=== PATIENT | female | born 1970 | race Caucasian/White ===

== ENCOUNTER 2017-02-09 16:18 | Outpatient (CLI) | payer MEDICAID | END 2017-02-09 16:19 | disposition critical access hospital (66) | DX: M25.551 Pain in right hip (principal); R10.11 Right upper quadrant pain | CPT/HCPCS: A0425; A0429 ==

== ENCOUNTER 2017-02-09 16:49 | Emergency (ER) | payer MEDICAID ==
[2017-02-09] MEDS ORDERED: HYDROmorphone 1 MG/ML SYRINGE IVP STA (17:04)
[2017-02-09] MEDS ORDERED: SODIUM CHLORIDE 0.9% 1,000 ML IV ONE (17:05)
[2017-02-09] MEDS ORDERED: HYDROmorphone 1 MG/ML SYRINGE ONE (17:07)
[2017-02-09] MEDS ORDERED: IOPAMIDOL-300 100 ML VIAL IVP ONE (18:42)
[2017-02-09] MEDS ORDERED: KETOROLAC 60 MG/2 ML VIAL IVP STA (19:30)
[2017-02-09] MEDS ORDERED: diazePAM INJ 5 MG/ML SYRINGE IVP STA (19:30)
[2017-02-09] MEDS ORDERED: diazePAM INJ 5 MG/ML SYRINGE ONE (19:37)
[2017-02-09] MEDS ORDERED: KETOROLAC 30 MG/ML VIAL ONE (19:37)
== END 2017-02-09 19:53 | disposition home or self-care (01) ==
DX: M62.830 Muscle spasm of back (principal); S09.90XA Unspecified injury of head, initial encounter; S39.91XA Unspecified injury of abdomen, initial encounter; R07.89 Other chest pain; W18.30XA Fall on same level, unspecified, initial encounter; Y92.000 Kitchen of unspecified non-institutional (private) residence as the place of occurrence of the external cause
CPT/HCPCS: 36415; 70450; 71260; 74177; 80053; 83690; 85025; 96374; 96375; 99283; 99285; J1170; Q9967

== ENCOUNTER 2017-05-21 19:23 | Outpatient (CLI) | payer MEDICAID | END 2017-05-21 19:24 | disposition critical access hospital (66) | LOC: EMS 19:23 | PROVIDERS: ATTEND Surgery | DX: R07.9 Chest pain, unspecified (principal); R42 Dizziness and giddiness | CPT/HCPCS: A0425; A0429 ==

== ENCOUNTER 2017-05-21 20:00 | Emergency (ER) | payer MEDICAID ==
[2017-05-21] MEDS ORDERED: SODIUM CHLORIDE 0.9% 1,000 ML IV ONE (20:17)
[2017-05-21 20:26] LABS: BILIRUBIN,URINE NEGATIVE (NEGATIVE); PH,URINE 5.5 PH (5.0-7.5)
[2017-05-21] MEDS ORDERED: ACETAMINOPHEN 325 MG TABLET PO STA (20:26)
[2017-05-21] MEDS ORDERED: HYDROmorphone 1 MG/ML SYRINGE IVP STA (20:26)
[2017-05-21 20:27] LABS: UA w/ MICROSCOPIC CHARGE YES
[2017-05-21 20:28] LABS: HCG UR QUAL NEGATIVE
[2017-05-21 20:29] LABS: BASOPHILS % (AUTO) 0.8 %; HCT - HEMATOCRIT 38.2 % (37.0-47.0); HGB - HEMOGLOBIN 13.1 g/dL (12.0-16.0); LYMPHOCYTES % (AUTO) 53.7 %; MEAN CORPUSCULAR HEMOGLOBIN 28.2 pg (27.0-31.0); MEAN CORPUSCULAR HGB CONC 34.2 g/dL (32.0-36.0); MEAN CORPUSCULAR VOLUME 82.6 fL (81.0-99.0); MEAN PLATELET VOLUME 7.3 fL (7.9-10.8); MONOCYTES % (AUTO) 7.4 %; NEUTROPHILS % (AUTO) 37.1 %; RED BLOOD COUNT 4.62 10^6/uL (4.20-5.40)
--- NOTE | 2017-05-21 20:29 | ED Physician Documentation ---
History of Present Illness - Stated complaint Stated Complaint: SOB/DIZZY - Chief complaint Chief Complaint: Neuro - History obtained from History obtained from: Patient, EMS - History of Present Illness Timing: Other (47-year-old woman with a history of intermittent thrombocytopenia , idiopathic, and chronic cough, undergoing workup at the [facility] presents with increasing right flank pain and fever, also some shortness of breath more today. She also had a seizure but that is not abnormal , she says that she often has seizures where she does not lose consciousness but becomes incontinent. She also has foul-smelling urine in 1 week's worth of diarrhea, no recent antibiotics.) Review of Systems Ten Systems: 10 systems reviewed and negative Constitutional: reports: Fever, Chills, Myalgias, Fatigue Nose: denies: Rhinorrhea / runny nose, Congestion Cardiac: reports: Chest pain / pressure. denies: Palpitations, Pedal edema, Calf pain Respiratory: reports: Dyspnea, Cough. denies: Hemoptysis, Wheezing GI: reports: Diarrhea. 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 - Present Medications Home Medications: Ambulatory Orders Medication Instructions Recorded Confirmed Trazodone HCl 100 mg PO 05/18/13 05/18/13 Venlafaxine [Effexor] 150 mg PO QDAC 05/18/13 05/18/13 Ibuprofen [Motrin] 400 mg PO Q6H PRN #30 tablet 12/31/13 Ibuprofen [Motrin] 800 mg PO Q8H PRN #30 tablet 08/10/16 Ibuprofen [Motrin] 400 mg PO Q6H PRN #30 tablet 09/29/16 Clonazepam 1 mg PO TID 02/09/17 02/09/17 Cyclobenzaprine [Flexeril] 10 mg PO TID PRN #20 tablet 02/09/17 Oxycodone HCl/Acetaminophen 1 - 2 tab PO Q4H PRN #7 tablet 02/09/17 [Percocet 5-325 mg Tablet] Prazosin HCl 5 PO 02/09/17 Ciprofloxacin HCl [Cipro] 500 mg PO BID #14 tablet 05/21/17 Oxycodone HCl/Acetaminophen 1 - 2 tab PO Q4H PRN #15 tablet 05/21/17 [Percocet 5-325 mg Tablet] - Allergies Allergies/Adverse Reactions: Allergies Allergy/AdvReac Type Severity Reaction Status Date / Time latex Allergy Mild Rash Verified 12/31/13 13:48 acetaminophen [From Vicodin] Allergy tachycardia Verified 05/18/13 16:54 hydrocodone bitartrate * Allergy tachycardia Verified 05/18/13 16:54 [From Vicodin] - Social History Does the pt smoke?: No Smoking Status: Never smoker Does the pt drink ETOH?: No Does the pt have substance abuse?: No - Family History Family history: reports: Non contributory PD ED PE NORMAL - Vitals Vital signs reviewed: Yes - General General: Alert and oriented X 3, No acute distress - HEENT HEENT: PERRL, EOMI - Neck Neck: Supple, no meningeal sign, No bony TTP - Cardiac Cardiac: RRR, No murmur - Respiratory Respiratory: No respiratory distress, Clear bilaterally - Abdomen Abdomen: Normal bowel sounds, Soft, Non tender - Back Back: Other (R flank CVAT TTP) - Derm Derm: Normal color, No rash - Extremities Extremities: No deformity, No tenderness to palpate, No edema, No calf tenderness / cord - Neuro Neuro: Alert and oriented X 3, Normal speech - Psych Psych: Normal mood, Normal affect Results - Vitals Vitals: Vital Signs - 24 hr 05/21/17 05/21/17 05/21/17 19:58 20:20 21:15 Temperature 39.5 C H Heart Rate 65 77 74 Respiratory 18 17 72 H Rate Blood Pressure 99/63 111/68 107/61 O2 Saturation 100 100 96 Oxygen O2 Source Room air - EKG (time done) 2009 Rate: Rate (enter#) (64) Rhythm: NSR [place]: Normal Intervals: Normal DE QRS: Normal Ischemia: Normal ST segments Computer interpretation: Agree with computer - Labs Labs: Laboratory Tests 05/21/17 05/21/17 05/21/17 20:07 20:18 20:18 WBC 10.0 RBC 4.62 Hgb 13.1 Hct 38.2 MCV 82.6 MCH 28.2 MCHC 34.2 RDW 13.0 Plt Count 291 MPV 7.3 L Neut # Not Reportable Lymph # Not Reportable [place] # Not Reportable Eos # Not Reportable Baso # Not Reportable Absolute Nucleated RBC Not Reportable Total Counted 100 Band Neuts % (Manual) 0 Reactive Lymphs % (Man) 4 Neutrophils # (Manual) 3.2 Lymphocytes # (Manual) 6.6 H Monocytes # (Manual) 0.1 Eosinophils # (Manual) 0.1 Nucleated RBCs Not Reportable Differential Comment MANUAL DIFFERENTIAL Sodium 137 Potassium 3.6 Chloride 106 Carbon Dioxide 23 Anion Gap 8.0 BUN 11 Creatinine 0.7 Estimated GFR (MDRD) 90 Glucose 72 Lactic Acid Calcium 9.1 Total Bilirubin 0.4 AST 17 ALT 10 Alkaline Phosphatase 85 Total Protein 7.6 Albumin 4.1 Globulin 3.5 Albumin/Globulin Ratio 1.2 Lipase 15 L Urine Color YELLOW Urine Clarity HAZY Urine pH 5.5 Ur Specific [place] 1.010 Urine Protein NEGATIVE Urine Glucose (UA) NEGATIVE Urine Ketones NEGATIVE Urine Occult Blood TRACE-INTA Urine Nitrite POSITIVE H Urine Bilirubin NEGATIVE Urine Urobilinogen 0.2 (NORMAL) Ur Leukocyte Esterase NEGATIVE Urine RBC 0-5 Urine WBC 6-10 H Ur Squamous Epith Cells MOD Squamous H Urine Bacteria Many H Ur Microscopic Review INDICATED Urine Culture Comments NOT INDICATED Urine HCG, Qual NEGATIVE 05/21/17 21:19 WBC RBC Hgb Hct MCV MCH MCHC RDW Plt Count MPV Neut # Lymph # [place] # Eos # Baso # Absolute Nucleated RBC Total Counted Band Neuts % (Manual) Reactive Lymphs % (Man) Neutrophils # (Manual) Lymphocytes # (Manual) Monocytes # (Manual) Eosinophils # (Manual) Nucleated RBCs Differential Comment Sodium Potassium Chloride Carbon Dioxide Anion Gap BUN Creatinine Estimated GFR (MDRD) Glucose Lactic Acid 1.4 Calcium Total Bilirubin AST ALT Alkaline Phosphatase Total Protein Albumin Globulin Albumin/Globulin Ratio Lipase Urine Color Urine Clarity Urine pH Ur Specific [place] Urine Protein Urine Glucose (UA) Urine Ketones Urine Occult Blood Urine Nitrite Urine Bilirubin Urine Urobilinogen Ur Leukocyte Esterase Urine RBC Urine WBC Ur Squamous Epith Cells Urine Bacteria Ur Microscopic Review Urine Culture Comments Urine HCG, Qual - Rads (name of study) 2v chest Radiology: EMP read contemporaneously (NAD) PD MEDICAL DECISION MAKING - ED course ED course: 47-year-old woman presents with clinical pyelonephritis and obviously infected albeit contaminated urine which is cultured anyway. No evidence of systemic infection/sepsis. Administered Rocephin here. Departure - Departure Disposition: 01 Home, Self Care Clinical Impression: Pyelonephritis Condition: Good Record reviewed to determine appropriate education?: Yes Instructions: Pyelonephritis Dc Prescriptions: Ciprofloxacin HCl [Cipro] 500 mg PO BID #14 tablet Oxycodone HCl/Acetaminophen [Percocet 5-325 mg Tablet] 1 - 2 tab PO Q4H PRN #15 tablet PRN Reason: Pain Comments: Call your doctor to arrange a follow-up appointment, make the next available appointment. In the interim, return anytime if worse or if new symptoms develop. We will culture your urine, the results should be done in 48-72 hours. If an antibiotic change is necessary we will call you. Return if worse in the meantime, especially if you develop increasing flank pain, fevers, or cannot keep down the medication.
[2017-05-21 20:30] LABS: BAND NEUTROPHILS % (MANUAL) 0 %
[2017-05-21] MEDS ORDERED: HYDROmorphone 1 MG/ML SYRINGE ONE (20:33)
[2017-05-21] MEDS ORDERED: ACETAMINOPHEN 325 MG TABLET PO ONE (20:34)
[2017-05-21 20:35] LABS: UR CULTURE IF IND NOT INDICATED
[2017-05-21 20:39] LABS: ALBUMIN/GLOBULIN RATIO 1.2 (1.0-2.2); BILIRUBIN,TOTAL 0.4 mg/dL (0.2-1.0); CALCIUM 9.1 mg/dL (8.5-10.3); CREATININE 0.7 mg/dL (0.4-1.0); POTASSIUM 3.6 mmol/L (3.5-5.0); TOTAL PROTEIN 7.6 g/dL (6.7-8.2)
[2017-05-21 20:48] LABS: EOSINOPHILS % (MANUAL) 1 %; LYMPHOCYTES % (MANUAL) 62 %; NEUTROPHILS % (MANUAL) 32 %; NP AUTO DIFFERENTIAL? YES; NP MAN DIFFERENTIAL? NO; TOTAL CELLS COUNTED 100
--- NOTE | 2017-05-21 21:26 | XRAY Preliminary Report ---
Exam: XR Chest 2 View PA/LAT IMPRESSION: Normal 2-view chest radiography. [facility] SITE ID: [id number]
--- NOTE | 2017-05-21 21:34 | XRAY Report ---
EXAM: CHEST RADIOGRAPHY EXAM DATE: 05/21/2017 08:49 PM. CLINICAL HISTORY: Cough, fever. COMPARISON: 09/29/2016. TECHNIQUE: 2 views. FINDINGS: Lungs/Pleura: No focal opacities evident. No pleural effusion. No pneumothorax. Normal volumes. Mediastinum: Heart and mediastinal contours are unremarkable. Other: None. IMPRESSION: Normal 2-view chest radiography. [facility] Referring Provider Line: [phone] SITE ID: [id number]
[2017-05-21] MEDS ORDERED: oxyCODONE/ACET 5/325 Prepack 4 PO STA (21:44)
[2017-05-21] MEDS ORDERED: cefTRIAXone 1 GM in SODIUM CHLORIDE 0.9% MINIBAG 100 ML IV STA (21:44)
[2017-05-21] MEDS ORDERED: ceFAZolin 1 GM VIAL ONE (21:50)
[2017-05-21] MEDS ORDERED: SODIUM CHLORIDE 0.9% MINIBAG 100 ML IV ONE (21:50)
[2017-05-21] MEDS ORDERED: oxyCODONE/ACET 5/325 Prepack 4 PO ONE (21:50)
[2017-05-21] MEDS ORDERED: cefTRIAXone 1 GM VIAL ONE (21:52)
[2017-05-21 22:38] VITALS: BP 110/70
== END 2017-05-21 22:39 | disposition home or self-care (01) ==
LOC: EDUNIT# → ED 20:00
DX: N12 Tubulo-interstitial nephritis, not specified as acute or chronic (principal); D69.3 Immune thrombocytopenic purpura
CPT/HCPCS: 36415; 71020; 80053; 81001; 81025; 83605; 83690; 85025; 87040; 87077; 87086; 87181; 93005; 96361; 96365; 96375; 99284; 99285; A9270; J1170; 81003

== ENCOUNTER 2017-07-06 14:42 | Outpatient (CLI) | payer OTHER, MEDICAID | END 2017-07-06 14:43 | disposition critical access hospital (66) | LOC: EMS 14:42 | PROVIDERS: ATTEND Surgery | DX: R10.9 Unspecified abdominal pain (principal); R05 Cough; V43.51XA Car driver injured in collision with sport utility vehicle in traffic accident, initial encounter; Y92.488 Other paved roadways as the place of occurrence of the external cause | CPT/HCPCS: A0425; A0429 ==

== ENCOUNTER 2017-07-06 15:09 | Emergency (ER) | payer MEDICAID ==
[2017-07-06] MEDS ORDERED: HYDROmorphone 1 MG/ML SYRINGE IVP STA ×2 (15:24→17:25)
[2017-07-06] MEDS ORDERED: SODIUM CHLORIDE 0.9% 1,000 ML IV ONE (15:24)
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
[2017-07-06 15:46] LABS: BASOPHILS % (AUTO) 0.2 %; EOSINOPHILS # (AUTO) 0.1 10^3/uL (0.0-0.7); EOSINOPHILS % (AUTO) 0.7 %; HCT - HEMATOCRIT 37.5 % (37.0-47.0); HGB - HEMOGLOBIN 12.8 g/dL (12.0-16.0); LYMPHOCYTES # (AUTO) 3.8 10^3/uL (1.5-3.5); LYMPHOCYTES % (AUTO) 36.4 %; MEAN CORPUSCULAR HEMOGLOBIN 28.3 pg (27.0-31.0); MEAN CORPUSCULAR HGB CONC 34.3 g/dL (32.0-36.0); MEAN CORPUSCULAR VOLUME 82.6 fL (81.0-99.0); MEAN PLATELET VOLUME 6.7 fL (7.9-10.8); MONOCYTES # (AUTO) 0.7 10^3/uL (0.0-1.0); MONOCYTES % (AUTO) 6.6 %; NEUTROPHILS # (AUTO) 5.9 10^3/uL (1.5-6.6); NEUTROPHILS % (AUTO) 56.1 %; RED BLOOD COUNT 4.54 10^6/uL (4.20-5.40); UNCORRECTED WHITE BLOOD COUNT 10.6 x10^3/uL; WHITE BLOOD COUNT 10.6 x10^3/uL (4.8-10.8)
[2017-07-06 15:57] LABS: ALBUMIN/GLOBULIN RATIO 1.2 (1.0-2.2); BILIRUBIN,TOTAL < 0.2 mg/dL (0.2-1.0); BUN - BLOOD UREA NITROGEN 6 mg/dL (6-20); CALCIUM 9.3 mg/dL (8.5-10.3); CARBON DIOXIDE - CO2 28 mmol/L (21-32); CHLORIDE 104 mmol/L (101-111); CREATININE 0.7 mg/dL (0.4-1.0); GFR - MDRD 90 (>89); GLUCOSE 114 mg/dL (70-100); LIPASE 21 U/L (22-51); POTASSIUM 3.6 mmol/L (3.5-5.0); SODIUM 138 mmol/L (135-145); TOTAL PROTEIN 7.6 g/dL (6.7-8.2)
[2017-07-06] MEDS ORDERED: HYDROmorphone 1 MG/ML SYRINGE ONE (16:13)
[2017-07-06] MEDS ORDERED: IOPAMIDOL-300 100 ML VIAL IVP ONE (16:50)
--- NOTE | 2017-07-06 17:17 | CT Preliminary Report ---
Exam: CT Head W/O IMPRESSION: No acute intracranial abnormality. [facility] SITE ID: [id number]
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
--- NOTE | 2017-07-06 17:20 | CT Preliminary Report ---
Exam: CT Cervical Spine W/O IMPRESSION: 1. No cervical spine fracture or malalignment. 2. Asymmetric bulging disk osteophyte complex at C5-C6 resulting in mild left neural foraminal stenos is. [facility] SITE ID: [id number]
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
--- NOTE | 2017-07-06 17:30 | CT Preliminary Report ---
Exam: CT Chest W/ IMPRESSION: No acute disease. [facility] SITE ID: [id number]
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
--- NOTE | 2017-07-06 17:35 | CT Preliminary Report ---
Exam: CT Abdomen/Pelvis W/ IMPRESSION: Incidental findings as noted. No acute disease. [facility] SITE ID: [id number]
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
[2017-07-06] MEDS ORDERED: KETOROLAC 60 MG/2 ML VIAL IVP STA (17:53)
[2017-07-06] MEDS ORDERED: KETOROLAC 30 MG/ML VIAL IVP STA (17:55)
[2017-07-06] MEDS ORDERED: KETOROLAC 30 MG/ML VIAL ONE (17:58)
[2017-07-06 18:08] VITALS: BP 106/63
[2017-07-06] MEDS ORDERED: oxyCOD/ACETAMIN 5 MG/325 MG TABLET PO STA (18:32)
[2017-07-06] MEDS ORDERED: oxyCOD/ACETAMIN 5 MG/325 MG TABLET PO ONE (18:37)
== END 2017-07-06 18:37 | disposition home or self-care (01) ==
LOC: EDUNIT# → EDSEX → ED 15:09
DX: R07.9 Chest pain, unspecified (principal); S39.91XA Unspecified injury of abdomen, initial encounter; S20.212A Contusion of left front wall of thorax, initial encounter; R51 Headache; S13.9XXA Sprain of joints and ligaments of unspecified parts of neck, initial encounter; V49.40XA Driver injured in collision with unspecified motor vehicles in traffic accident, initial encounter; Y92.411 Interstate highway as the place of occurrence of the external cause
CPT/HCPCS: 36415; 70450; 71260; 72125; 74177; 80053; 80320; 83690; 85025; 96374; 96375; 96376; 99283; 99284; A9270; J1170; Q9967

== ENCOUNTER 2017-07-13 14:24 | Outpatient (CLI) | payer MEDICAID | END 2017-07-13 14:25 | disposition critical access hospital (66) | LOC: EMS 14:24 | PROVIDERS: ATTEND Surgery | DX: R10.9 Unspecified abdominal pain (principal) | CPT/HCPCS: A0425; A0429 ==

== ENCOUNTER 2017-07-13 14:57 | Emergency (ER) | payer MEDICAID ==
[2017-07-13] MEDS ORDERED: oxyCODONE 5 MG TABLET PO STA (15:16)
[2017-07-13 15:23] LABS: BILIRUBIN,URINE NEGATIVE (NEGATIVE)
[2017-07-13 15:24] LABS: UA CHARGE (STRIP ONLY) YES; UR CULTURE IF IND NOT INDICATED
[2017-07-13] MEDS ORDERED: oxyCODONE 5 MG TABLET ONE (16:05)
[2017-07-13 16:06] LABS: BASOPHILS # (AUTO) 0.1 10^3/uL (0.0-0.1); BASOPHILS % (AUTO) 0.4 %; EOSINOPHILS % (AUTO) 0.3 %; HGB - HEMOGLOBIN 13.6 g/dL (12.0-16.0); LYMPHOCYTES # (AUTO) 2.8 10^3/uL (1.5-3.5); LYMPHOCYTES % (AUTO) 22.6 %; MEAN CORPUSCULAR HEMOGLOBIN 28.4 pg (27.0-31.0); MEAN CORPUSCULAR VOLUME 83.7 fL (81.0-99.0); MEAN PLATELET VOLUME 6.8 fL (7.9-10.8); MONOCYTES # (AUTO) 0.6 10^3/uL (0.0-1.0); MONOCYTES % (AUTO) 5.2 %; NEUTROPHILS # (AUTO) 8.7 10^3/uL (1.5-6.6); NEUTROPHILS % (AUTO) 71.5 %; RED BLOOD COUNT 4.78 10^6/uL (4.20-5.40); UNCORRECTED WHITE BLOOD COUNT 12.2 x10^3/uL; WHITE BLOOD COUNT 12.2 x10^3/uL (4.8-10.8)
--- NOTE | 2017-07-13 16:06 | XRAY Preliminary Report ---
Exam: XR Chest 2 View PA/LAT IMPRESSION: Normal 2-view chest radiography. [facility] SITE ID: [id number]
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
[2017-07-13 16:17] LABS: ALBUMIN/GLOBULIN RATIO 1.2 (1.0-2.2); BILIRUBIN,TOTAL 0.7 mg/dL (0.2-1.0); CALCIUM 9.4 mg/dL (8.5-10.3); CREATININE 0.7 mg/dL (0.4-1.0); POTASSIUM 3.5 mmol/L (3.5-5.0); TOTAL PROTEIN 8.4 g/dL (6.7-8.2)
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
--- NOTE | 2017-07-13 17:09 | MRI Preliminary Report ---
Exam: MRI Cervical Spine W/O IMPRESSION: 1. Mild spondylotic change with left C5-C6 foraminal narrowing and an uncovertebral osteophyte contac ting the left C6 nerve root. 2. Mild canal narrowing at C5-C6 and C6-C7 with minimal cord effacement. No cord edema. [facility] SITE ID: [id number]
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
--- NOTE | 2017-07-13 17:39 | Ultrasound Preliminary Report ---
Exam: US ABDOMEN LIMITED IMPRESSION: No free intraperitoneal fluid. [facility] SITE ID: [id number]
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
[2017-07-13 18:18] VITALS: BP 96/63
== END 2017-07-13 18:16 | disposition home or self-care (01) ==
LOC: EDUNIT# → ED 14:57
DX: R20.9 Unspecified disturbances of skin sensation (principal); S13.9XXA Sprain of joints and ligaments of unspecified parts of neck, initial encounter; S20.219A Contusion of unspecified front wall of thorax, initial encounter; S30.1XXA Contusion of abdominal wall, initial encounter; V89.2XXA Person injured in unspecified motor-vehicle accident, traffic, initial encounter
CPT/HCPCS: 36415; 71020; 72141; 76705; 80053; 81003; 83690; 85025; 99284; A9270; 81001; 87086

== ENCOUNTER 2017-10-19 10:21 | Outpatient (CLI) | payer MEDICAID | END 2017-10-19 10:22 | disposition critical access hospital (66) | LOC: EMS 10:21 | PROVIDERS: ATTEND Surgery | DX: R06.00 Dyspnea, unspecified (principal) | CPT/HCPCS: A0425; A0429 ==

== ENCOUNTER 2017-10-19 10:49 | Emergency (ER) | payer MEDICAID ==
--- NOTE | 2017-10-19 11:22 | ED Physician Documentation ---
History of Present Illness - Stated complaint Stated Complaint: SOA/ NECK PX - Chief complaint Chief Complaint: General - History obtained from History obtained from: Patient - History of Present Illness Timing: How many weeks ago (1) - Additonal information Additional information: 47-year-old female has had a cough for the past year and over the past week she has developed an increase in the cough she has developed some difficulty with swallowing and the sensation of a mass in her esophagus. She has a sensation that when she swallows something takes a while for to go down she is able swallow liquids without problem. She has had an increase in her cough and has a headache in the back side of her head on the left side. She is also been told recently that her thyroid is low. Review of Systems Constitutional: reports: Myalgias, Fatigue, Sweats. denies: Fever Eyes: denies: Loss of vision, Decreased vision Ears: denies: Ear pain Nose: denies: Rhinorrhea / runny nose, Congestion, Sinus pressure / pain Throat: reports: Sore throat Cardiac: denies: Chest pain / pressure, Palpitations Respiratory: reports: Dyspnea, Cough, Wheezing GI: denies: Abdominal Pain, Nausea, Vomiting : denies: Dysuria, Frequency Skin: denies: Rash Musculoskeletal: reports: Neck pain. denies: Back pain, Extremity pain Neurologic: reports: Headache. 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 - Present Medications Home Medications: Ambulatory Orders Medication Instructions Recorded Confirmed Trazodone HCl 400 mg PO DAILY 05/18/13 10/19/17 Venlafaxine [Effexor] 300 mg PO DAILY 05/18/13 10/19/17 clonazePAM [Clonazepam] 1 mg PO PRN PRN 02/09/17 10/19/17 lamoTRIgine [Lamictal] 300 mg PO DAILY 07/13/17 10/19/17 Amox/Clav 875/125 [Augmentin] 1 each PO Q12H #20 tablet 10/19/17 - Allergies Allergies/Adverse Reactions: Allergies Allergy/AdvReac Type Severity Reaction Status Date / Time latex Allergy Mild Rash Verified 10/19/17 10:54 acetaminophen [From Vicodin] Allergy tachycardia Verified 10/19/17 10:54 benzonatate Allergy Respiratory Verified 10/19/17 10:54 [From Tessalon Perles] hydrocodone bitartrate * Allergy tachycardia Verified 10/19/17 10:54 [From Vicodin] - Social History Does the pt smoke?: No Smoking Status: Never smoker Does the pt drink ETOH?: No Does the pt have substance abuse?: No - Immunizations Immunizations are current?: Yes - POLST Patient has POLST: No PD ED PE NORMAL - Vitals Vital signs reviewed: Yes (normal ) - General General: Alert and oriented X 3, Well developed/nourished, Other (The patient is coughing frequently. ) - HEENT HEENT: Atraumatic, PERRL, EOMI, Ears normal, Other (The posterior pharynx is small but without signs of inflamation ) - Neck Neck: Supple, no meningeal sign, No bony TTP, Other (There is some point tenderness along the left trapezius as it inserts into the occiput. The patient feels there is a mass there and I am not able to appreciate this. There is some tendeness to the thyroid but I am not able to appreciate a mass. ) - Cardiac Cardiac: RRR - Respiratory Respiratory: No respiratory distress, Other (decreased breath sounds with light rhonchi in the right mid lung field. 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, No motor deficit, No sensory deficit, Normal speech Eye Opening: Spontaneous Motor: Obeys Commands Verbal: Oriented GCS Score: 15 - Psych Psych: Normal mood, Normal affect Results - Vitals Vitals: Vital Signs - 24 hr 10/19/17 10/19/17 10/19/17 10:49 11:47 12:30 Temperature 36.6 C 36.6 C Heart Rate 83 87 72 Respiratory 18 16 18 Rate Blood Pressure 125/71 113/67 99/59 L O2 Saturation 98 98 97 10/19/17 10/19/17 13:25 14:51 Temperature Heart Rate 68 66 Respiratory 18 16 Rate Blood Pressure 123/71 126/77 O2 Saturation 99 98 Oxygen O2 Source Room air - Labs Labs: Laboratory Tests 10/19/17 10/19/17 10/19/17 11:25 12:11 12:56 WBC 12.7 H RBC 4.69 Hgb 13.5 Hct 40.2 MCV 85.7 MCH 28.8 MCHC 33.6 RDW 12.5 Plt Count 316 MPV 6.9 L Neut # 6.8 H Lymph # 5.0 H [place] # 0.8 Eos # 0.1 Baso # 0.1 Absolute Nucleated RBC 0.00 Nucleated RBC % 0.0 Sodium 138 Potassium 3.9 Chloride 104 Carbon Dioxide 25 Anion Gap 9.0 BUN 10 Creatinine 0.6 Estimated GFR (MDRD) 108 Glucose 90 Calcium 9.0 Total Bilirubin 0.4 AST 61 H ALT 67 H Alkaline Phosphatase 104 Total Protein 7.5 Albumin 4.0 Globulin 3.5 Albumin/Globulin Ratio 1.1 Lipase 39 Urine Color YELLOW Urine Clarity CLOUDY Urine pH 6.5 Ur Specific [place] 1.010 Urine Protein NEGATIVE Urine Glucose (UA) NEGATIVE Urine Ketones NEGATIVE Urine Occult Blood TRACE-INTA Urine Nitrite POSITIVE H Urine Bilirubin NEGATIVE Urine Urobilinogen 0.2 (NORMAL) Ur Leukocyte Esterase MODERATE H Urine RBC 0-5 Urine WBC >25 H Ur Squamous Epith Cells MANY Squamous H Urine Bacteria Many H Ur Microscopic Review INDICATED Urine Culture Comments NOT INDICATED - Rads (name of study) soft tissue neck CT with Radiology: Prelim report reviewed (Impression: 1. A lymph node in the left level 2B steve stations meet the size criteria for malignancy but otherwise has benign imaging characteristics. It is indeterminate for possible malignant involvement. 2. No other significant findings on this soft tissue neck CT. In partricular, no potential head and neck primary malignancy is identified and no potential explanation for "trouble swallowing "is demonstrated. If there is ongoing clinical concern with respect to dysphagia, consider further assessment with barium swallow.), EMP read indepedently, See rad report 2 view chest Radiology: Prelim report reviewed (Impression: Normal two-view chest radiography.), EMP read indepedently, See rad report CT sinuses Radiology: Prelim report reviewed (Impression: The paranasal sinuses are well aerated and clear. No evidence of acute or chronic sinusitis.), EMP read indepedently, See rad report Procedures - IVC sono (time) 1120 Bedside IVC sono: IVC measures (cm) (1.47), IVC collapsed c insp (cm) (0.73), Euvolemia PD MEDICAL DECISION MAKING - ED course Complexity details: reviewed old records, reviewed results, re-evaluated patient , considered differential, d/w patient ED course: 47-year-old female with a sensation of difficulty swallowing has an enlarged lymph node in the left side of her neck. She is able to palpate this and feels this. I suspect this is the etiology of her difficulty with swallowing. The swallowing difficulty did not show up on a barium swallow and it did not show up as any abnormality on her CT scan other than this lymph node. Here in the emergency department the patient is administered dexamethasone orally and given Rocephin 1 g intravenously. We will put her on some Augmentin for lymphadenitis. Her sinuses and chest appear clear.The lymph node is large enough that it will need to be followed for resolution. Departure - Departure Disposition: 01 Home, Self Care Clinical Impression: Lymphadenitis Urinary tract infection Qualifiers: Urinary tract infection type: acute cystitis Hematuria presence: without hematuria Qualified Code(s): N30.00 - Acute cystitis without hematuria Condition: Stable Instructions: ED UTI Cystitis Female, ED Cervical Adenitis Abx Tx Follow-Up: Roxanna Li ARNP [Primary Care Provider] - Prescriptions: Amox/Clav 875/125 [Augmentin] 1 each PO Q12H #20 tablet
[2017-10-19 11:43] LABS: BILIRUBIN,URINE NEGATIVE (NEGATIVE); PH,URINE 6.5 PH (5.0-7.5)
--- NOTE | 2017-10-19 11:44 | XRAY Preliminary Report ---
Exam: XR CHEST 2 VIEW PA/LAT IMPRESSION: Normal 2-view chest radiography. [facility] SITE ID: [id number]
[2017-10-19 11:45] LABS: UA w/ MICROSCOPIC CHARGE YES
--- NOTE | 2017-10-19 11:47 | XRAY Report ---
EXAM: CHEST RADIOGRAPHY EXAM DATE: 10/19/2017 11:37 AM. CLINICAL HISTORY: Cough. COMPARISON: 07/13/2017. TECHNIQUE: 2 views. FINDINGS: Lungs/Pleura: No focal opacities evident. No pleural effusion. No pneumothorax. Normal volumes. Mediastinum: Heart and mediastinal contours are unremarkable. Other: Contrast in the GI tract IMPRESSION: Normal 2-view chest radiography. [facility] Referring Provider Line: [phone] SITE ID: [id number]
[2017-10-19] MEDS ORDERED: DEXAMETHASONE 10 MG/ML VIAL IVP STA (11:49)
[2017-10-19] MEDS ORDERED: DEXAMETHASONE 10 MG/ML VIAL ONE (11:58)
[2017-10-19 12:00] LABS: UR CULTURE IF IND NOT INDICATED; WBC,URINE >25 /HPF (0-5)
[2017-10-19 12:16] LABS: BASOPHILS # (AUTO) 0.1 10^3/uL (0.0-0.1); BASOPHILS % (AUTO) 0.4 %; EOSINOPHILS # (AUTO) 0.1 10^3/uL (0.0-0.7); EOSINOPHILS % (AUTO) 0.5 %; HCT - HEMATOCRIT 40.2 % (37.0-47.0); HGB - HEMOGLOBIN 13.5 g/dL (12.0-16.0); MEAN CORPUSCULAR HEMOGLOBIN 28.8 pg (27.0-31.0); MEAN CORPUSCULAR HGB CONC 33.6 g/dL (32.0-36.0); MEAN CORPUSCULAR VOLUME 85.7 fL (81.0-99.0); MEAN PLATELET VOLUME 6.9 fL (7.9-10.8); MONOCYTES # (AUTO) 0.8 10^3/uL (0.0-1.0); MONOCYTES % (AUTO) 6.3 %; NEUTROPHILS # (AUTO) 6.8 10^3/uL (1.5-6.6); NEUTROPHILS % (AUTO) 53.8 %; RED BLOOD COUNT 4.69 10^6/uL (4.20-5.40); RED CELL DISTRIBUTION WIDTH 12.5 % (12.0-15.0); UNCORRECTED WHITE BLOOD COUNT 12.7 x10^3/uL; WHITE BLOOD COUNT 12.7 x10^3/uL (4.8-10.8)
[2017-10-19] MEDS ORDERED: IOPAMIDOL-300 100 ML VIAL ONE (12:29)
[2017-10-19 13:15] LABS: ALBUMIN/GLOBULIN RATIO 1.1 (1.0-2.2); BILIRUBIN,TOTAL 0.4 mg/dL (0.2-1.0); CREATININE 0.6 mg/dL (0.4-1.0); POTASSIUM 3.9 mmol/L (3.5-5.0); TOTAL PROTEIN 7.5 g/dL (6.7-8.2)
[2017-10-19] MEDS ORDERED: IOPAMIDOL-300 100 ML VIAL IVP ONE (13:16)
--- NOTE | 2017-10-19 13:33 | CT Preliminary Report ---
Exam: CT NECK SOFT TISSUE W/ Impression: 1. A lymph node in the left level IIb steve stations meet the size criteria on for malignancy but oth erwise has benign imaging characteristics. It is indeterminant for possible malignant involvement. 2. No other significant findings on this soft tissue neck CT. In periventricular, no potential head a nd neck primary malignancy is identified and no potential explanation for" trouble swallowing" is dem onstrated. If there is ongoing clinical concern with respect to dysphasia, consider further assessmen t with barium swallow. SITE ID: [id number]
--- NOTE | 2017-10-19 13:58 | CT Preliminary Report ---
Exam: CT SINUSES Impression: The paranasal sinuses are well aerated and clear. No evidence of acute or chronic sinusitis. SITE ID: [id number]
[2017-10-19] MEDS ORDERED: cefTRIAXone 1 GM in SODIUM CHLORIDE 0.9% MINIBAG 100 ML IV STA (14:59)
[2017-10-19] MEDS ORDERED: LORazepam 2 MG/ML SYRINGE IVP STA (15:16)
[2017-10-19] MEDS ORDERED: cefTRIAXone 1 GM VIAL ONE (15:16)
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
--- NOTE | 2017-10-19 15:23 | CT Report ---
CT SINUSES WITHOUT CONTRAST EXAM DATE: 10/19/2017. COMPARISON: Head CT 07/06/2017. INDICATION: 47-year-old female with persistent cough and headache. TECHNIQUE: Helical scan through the orbits and maxillofacial region with reconstruction into 1 mm axial images. In addition, 1 mm sagittal and coronal reformations have been generated. This examination was performed using a bone algorithm. Images are only available in bone windows. In accordance with CT protocol optimization, one or more of the following dose reduction techniques w ere utilized for this exam: automated exposure control, adjustment of mA and/or KV based on patient s ize, or use of iterative reconstructive technique. FINDINGS: Again demonstrated are concave deformities in the medial alarcon of the orbits bilaterally, consistent with the sequela of remote, blowout type fractures. A metal mesh in combination with bone graft mater ial or methyl methacrylate is demonstrated in the medial, extraconal space of the left orbit, related to previous surgery to compensate for defect in left medial orbital wall. Of note, the posteriormost screw (see image 59 of series #3 and image 66 of series #6) appears to be free-floating and does not make contact with the left lamina papyracea. In addition, it is noted that [address] into the canal for the left nasolacrimal duct. The maxillary, ethmoid, sphenoid and frontal sinuses appear well aerated and clear. The frontal recesses, ostiomeatal units and sphenoethmoidal recesses appear patent bilaterally. There is mild deviation of the nasal septum to the left anteriorly. The nasal cavity is otherwise unr emarkable. There is symmetric prominence of the posterior nasopharyngeal soft tissues, likely representing benig n adenoidal hypertrophy. The middle ear cavities and mastoid air cells appear clear. Regional bony structures are intact. Degenerative changes are seen at the TMJs bilaterally. IMPRESSION: The paranasal sinuses are well aerated and clear. No evidence of acute or chronic sinusitis. Referring Provider Line: [phone] SITE ID: [id number]
[2017-10-19] MEDS ORDERED: LORazepam 2 MG/ML SYRINGE ONE (15:27)
[2017-10-19 17:58] VITALS: BP 127/88
== END 2017-10-19 15:58 | disposition home or self-care (01) ==
LOC: EDUNIT# → ED 10:49
DX: I88.9 Nonspecific lymphadenitis, unspecified (principal); N30.00 Acute cystitis without hematuria
CPT/HCPCS: 36415; 70486; 70491; 71020; 80053; 81001; 83690; 85025; 96365; 96375; 99283; 99284; J2060; Q9967; 81003; 87086

== ENCOUNTER 2017-10-25 09:15 | Outpatient (CLI) | payer MEDICAID | END 2017-10-25 09:16 | disposition short-term general hospital (02) | LOC: EMS 09:15 | PROVIDERS: ATTEND Surgery | DX: Z03.89 Encounter for observation for other suspected diseases and conditions ruled out (principal) | CPT/HCPCS: A0425; A0429 ==

== ENCOUNTER 2018-03-30 18:24 | Outpatient (CLI) | payer MEDICAID | END 2018-03-30 18:25 | disposition critical access hospital (66) | LOC: EMS 18:24 | PROVIDERS: ATTEND Surgery | DX: F41.0 Panic disorder [episodic paroxysmal anxiety] (principal) | CPT/HCPCS: A0425; A0429 ==

== ENCOUNTER 2018-03-30 19:05 | Emergency (ER) | payer MEDICAID ==
[2018-03-30] MEDS ORDERED: clonazePAM 0.5 MG TABLET PO STA (20:37)
--- NOTE | 2018-03-30 20:40 | ED Physician Documentation ---
History of Present Illness - Stated complaint Stated Complaint: MED REFILL, TOE PAIN - Chief complaint Chief Complaint: General - History obtained from History obtained from: Patient - History of Present Illness Timing: Today Pain level max: 5 Pain level now: 4 Improved by: rest Worsened by: walking - Additonal information Additional information: states out of her clonazepam x 2 days. Sees her doctor tomorrow for medication refill. also states injured her L 5th toe. Doesn't recall how. States her fiance (who is also her caregiver) was arrested recently for outstanding warrants. Review of Systems Ten Systems: 10 systems reviewed and negative Constitutional: denies: Fever, Chills Ears: denies: Ear pain Nose: denies: Rhinorrhea / runny nose, Congestion Throat: denies: Sore throat Cardiac: denies: Chest pain / pressure Respiratory: denies: Cough, Wheezing : denies: Dysuria Skin: denies: Rash Musculoskeletal: denies: Neck pain, Back pain Neurologic: denies: Focal weakness, Numbness, Headache Psychiatric: reports: Anxiety. 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 - Present Medications Home Medications: Ambulatory Orders Medication Instructions Recorded Confirmed Trazodone HCl 400 mg PO DAILY 05/18/13 10/19/17 Venlafaxine [Effexor] 300 mg PO DAILY 05/18/13 10/19/17 clonazePAM [Clonazepam] 1 mg PO PRN PRN 02/09/17 10/19/17 lamoTRIgine [Lamictal] 300 mg PO DAILY 07/13/17 10/19/17 Ibuprofen [Motrin] 800 mg PO Q8H PRN #20 tablet 03/30/18 Levothyroxine [Synthroid] 03/30/18 clonazePAM [Klonopin] 1 mg PO BID PRN #4 tablet 03/30/18 raNITIdine [Zantac] 03/30/18 - Allergies Allergies/Adverse Reactions: Allergies Allergy/AdvReac Type Severity Reaction Status Date / Time latex Allergy Mild Rash Verified 10/19/17 10:54 acetaminophen [From Vicodin] Allergy tachycardia Verified 11/28/17 10:54 benzonatate Allergy Respiratory Verified 10/19/17 10:54 [From Tessalon Perles] hydrocodone bitartrate * Allergy tachycardia Verified 10/19/17 10:54 [From Vicodin] - Social History Does the pt smoke?: No Smoking Status: Never smoker Does the pt drink ETOH?: No Does the pt have substance abuse?: No - Immunizations Immunizations are current?: Yes - POLST Patient has POLST: No PD ED PE NORMAL - Vitals Vital signs reviewed: Yes - General General: Alert and oriented X 3, No acute distress - HEENT HEENT: Moist mucous membranes - Neck Neck: Supple, no meningeal sign - Cardiac Cardiac: RRR - Respiratory Respiratory: No respiratory distress, Clear bilaterally - Derm Derm: Warm and dry - Extremities Extremities: Other (L foot - swelling and ecchymosis to the L 5th toe. NVI.) - Neuro Neuro: Alert and oriented X 3 - Psych Psych: Other (anxious) Results - Vitals Vitals: Vital Signs - 24 hr 03/30/18 03/30/18 19:04 22:00 Temperature 36.6 C 36.3 C L Heart Rate 77 75 Respiratory 16 16 Rate Blood Pressure 112/61 105/64 O2 Saturation 100 100 Oxygen O2 Source Room air - Rads (name of study) L foot xray Radiology: Prelim report reviewed, EMP read contemporaneously, See rad report ( Fifth proximal phalangeal fracture with joint surface involvement. ) PD MEDICAL DECISION MAKING - ED course Complexity details: reviewed results, re-evaluated patient, considered differential, d/w patient ED course: Patient is a 48-year-old female who presents to the emergency department left fifth toe pain, found to have a fracture. Placed in a postoperative shoe for this as well as nella taping of the toe. She was also given a dose of clonazepam here as her last dose was 2 days ago. Do not want her to go into withdrawals as she has had this medication long-term. She is supposed to follow -up with her doctor tomorrow for a refill, will prescribe her 4 pills in case there are issues getting her refill tomorrow. Patient denies any suicidal or homicidal ideation. Patient counseled regarding signs and symptoms for which I believe and urgent re-evaluation would be necessary. Patient with good understanding of and agreement to plan and is comfortable going home at this time This document was made in part using voice recognition software. While efforts are made to proofread this document, sound alike and grammatical errors may occur. Departure - Departure Disposition: 01 Home, Self Care Clinical Impression: Anxiety Toe fracture, left Qualifiers: Encounter type: initial encounter Toe: lesser toe Fracture type: closed Phalanx : proximal Fracture alignment: displaced Qualified Code(s): S92.512A - Displaced fracture of proximal phalanx of left lesser toe(s), initial encounter for closed fracture Condition: Good Instructions: ED Panic Attack, ED Fx Toe Closed Follow-Up: Roxanna Li ARNP [Primary Care Provider] - Tomorrow (as scheduled) Prescriptions: clonazePAM [Klonopin] 1 mg PO BID PRN #4 tablet PRN Reason: Anxiety Ibuprofen [Motrin] 800 mg PO Q8H PRN #20 tablet PRN Reason: PAIN &/OR FEVER Comments: Follow-up with your doctor tomorrow as scheduled to refill your clonazepam. Return if you worsen. Discharge Date/Time: 03/30/18 22:05
--- NOTE | 2018-03-30 21:40 | XRAY Report ---
EXAM: LEFT FOOT RADIOGRAPHY EXAM DATE: 03/30/2018 09:32 PM. CLINICAL HISTORY: Trauma, pain. COMPARISON: 12/31/2013. TECHNIQUE: 3 views. FINDINGS: Bones: Oblique fracture of the mid to distal portions of the fifth proximal phalanx extending into th e midportion of the PIP joint surface, with about 90% apposition. A transverse fracture line continue s to the medial surface of the phalangeal head. Otherwise unremarkable. Joints: Normal. No subluxations. Soft Tissues: Mild soft tissue swelling. IMPRESSION: Fifth proximal phalangeal fracture with joint surface involvement. [facility] Referring Provider Line: [phone] SITE ID: [id number]
[2018-03-30 22:01] VITALS: BP 105/64
== END 2018-03-30 22:05 | disposition home or self-care (01) ==
LOC: ED 19:05
DX: F41.9 Anxiety disorder, unspecified (principal); S92.512A Displaced fracture of proximal phalanx of left lesser toe(s), initial encounter for closed fracture
CPT/HCPCS: 73630; 99283; A9270

== ENCOUNTER 2019-09-10 00:59 | Outpatient (CLI) | payer MEDICAID | END 2019-09-10 01:00 | disposition critical access hospital (66) | LOC: EMS 00:59 | PROVIDERS: ATTEND Surgery | DX: R11.10 Vomiting, unspecified (principal) | CPT/HCPCS: A0425; A0429; A0999 ==

== ENCOUNTER 2019-09-10 01:15 | Emergency (ER) | payer MEDICAID ==
[2019-09-10] MEDS ORDERED: METOCLOPRAMIDE 10 MG/2 ML VIAL IVP STA (01:32)
[2019-09-10] MEDS ORDERED: diphenhydrAMINE INJ 50 MG/ML VIAL IVP STA (01:32)
--- NOTE | 2019-09-10 01:34 | ED Physician Documentation ---
History of Present Illness - Stated complaint Stated Complaint: WRETCHING, LEE, POSS HEROIN WITHDRAWAL - Chief complaint Chief Complaint: General - Additonal information Additional information: This is a 49-year-old female who uses heroin and Suboxone, presents with headache, abdominal pain, and vomiting. Patient snorts heroin or smokes it, she denies ever injecting heroin. She also takes Suboxone. At 3 PM she snorted heroin, and then she went to bed this evening, she woke up 1 to 2 hours ago with a headache, that has become severe. Her son gave her Tylenol but this did not seem to help. She states the headache is currently 10 out of 10. She also has some abdominal pain that is in the periumbilical region. She does not typically get headaches. She denies vision changes, weakness or numbness other than she has slight amount of paresthesia in her left hand which is chronic from a past injury. She has vomited multiple times which is been nonbloody nonbilious. She has lower abdominal discomfort. She denies abnormal vaginal discharge or itching/bruning. She denies diarrhea. No fever. She has had a hysterectomy. 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 - Present Medications Home Medications: Ambulatory Orders Medication Instructions Recorded Confirmed Trazodone HCl 400 mg PO DAILY 05/18/13 10/19/17 Venlafaxine [Effexor] 300 mg PO DAILY 05/18/13 10/19/17 clonazePAM [Clonazepam] 1 mg PO PRN PRN 02/09/17 10/19/17 lamoTRIgine [Lamictal] 300 mg PO DAILY 07/13/17 10/19/17 Ibuprofen [Motrin] 800 mg PO Q8H PRN #20 tablet 03/30/18 Levothyroxine [Synthroid] 03/30/18 clonazePAM [Klonopin] 1 mg PO BID PRN #4 tablet 03/30/18 raNITIdine [Zantac] 03/30/18 - Allergies Allergies/Adverse Reactions: Allergies Allergy/AdvReac Type Severity Reaction Status Date / Time latex Allergy Mild Rash Verified 10/19/17 10:54 acetaminophen [From Vicodin] Allergy tachycardia Verified 10/19/17 10:54 benzonatate Allergy Respiratory Verified 10/19/17 10:54 [From Tessalon Perles] hydrocodone bitartrate * Allergy tachycardia Verified 10/19/17 10:54 [From Vicodin] - Social History Does the pt smoke?: No Smoking Status: Never smoker Does the pt drink ETOH?: No Does the pt have substance abuse?: No Substance Use and Type: Heroin, Prescription Pills - Immunizations Immunizations are current?: Yes - POLST Patient has POLST: No PD ED PE NORMAL - Vitals Vital signs reviewed: Yes - General General: Alert and oriented X 3 - HEENT HEENT: Other (Erythema and rhinorrhea of her bilateral nares. There is also some erythema going down from her nose to upper lip.) - Neck Neck: Supple, no meningeal sign - Cardiac Cardiac: RRR - Respiratory Respiratory: No respiratory distress, Clear bilaterally - Abdomen Abdomen: Soft, Other (Nondistended, mild abdominal discomfort with palpation of the periumbilical region and left upper quadrant. No specific right lower quadrant or right upper quadrant tenderness) - Derm Derm: Warm and dry - Extremities Extremities: No deformity - Neuro Neuro: Alert and oriented X 3, vaccines solutions specialist 2-12 intact, No motor deficit, No sensory deficit, Normal speech, Other (No ataxia, stable gait) - Psych Psych: Normal mood, Normal affect Results - Vitals Vitals: Oxygen O2 Source Room air - Labs Labs: Microbiology 09/10/19 03:00 Urine Culture - Preliminary Urine,Clean Catch Escherichia Coli Laboratory Tests 09/10/19 09/10/19 09/10/19 01:28 01:28 01:28 WBC 10.2 RBC 4.45 Hgb 12.9 Hct 38.2 MCV 85.8 MCH 29.0 MCHC 33.8 RDW 11.9 L Plt Count 272 MPV 8.7 Neut # (Auto) 8.5 H Lymph # (Auto) 0.8 L Love # (Auto) 0.8 Eos # (Auto) 0.0 Baso # (Auto) 0.0 Absolute Nucleated RBC 0.00 Nucleated RBC % 0.0 PT 12.8 H INR 1.1 Sodium 132 L Potassium 3.4 L Chloride 95 L Carbon Dioxide 27 Anion Gap 10.0 BUN 12 Creatinine 0.6 Estimated GFR (MDRD) 107 Glucose 98 Calcium 9.1 Total Bilirubin 0.7 AST 20 ALT 14 Alkaline Phosphatase 93 Total Protein 7.4 Albumin 4.2 Globulin 3.2 Albumin/Globulin Ratio 1.3 Lipase 19 L TSH Urine Color Urine Clarity Urine pH Ur Specific [place] Urine Protein Urine Glucose (UA) Urine Ketones Urine Occult Blood Urine Nitrite Urine Bilirubin Urine Urobilinogen Ur Leukocyte Esterase Urine RBC Urine WBC Ur Squamous Epith Cells Amorphous Sediment Urine Bacteria Ur Microscopic Review Urine Culture Comments 09/10/19 09/10/19 01:28 03:00 WBC RBC Hgb Hct MCV MCH MCHC RDW Plt Count MPV Neut # (Auto) Lymph # (Auto) Love # (Auto) Eos # (Auto) Baso # (Auto) Absolute Nucleated RBC Nucleated RBC % PT INR Sodium Potassium Chloride Carbon Dioxide Anion Gap BUN Creatinine Estimated GFR (MDRD) Glucose Calcium Total Bilirubin AST ALT Alkaline Phosphatase Total Protein Albumin Globulin Albumin/Globulin Ratio Lipase TSH 1.45 Urine Color YELLOW Urine Clarity CLOUDY Urine pH 8.0 H Ur Specific [place] 1.010 Urine Protein NEGATIVE Urine Glucose (UA) NEGATIVE Urine Ketones 15 H Urine Occult Blood TRACE-INTA Urine Nitrite POSITIVE H Urine Bilirubin NEGATIVE Urine Urobilinogen 0.2 (NORMAL) Ur Leukocyte Esterase NEGATIVE Urine RBC 0-5 Urine WBC 4-5 Ur Squamous Epith Cells RARE Squamous Amorphous Sediment Moderate Urine Bacteria Many H Ur Microscopic Review INDICATED Urine Culture Comments INDICATED - Rads (name of study) Head CT WO Radiology: Other (No acute intracranial abnormality) PD MEDICAL DECISION MAKING - ED course Complexity details: considered differential (Tension headache, SAH, migraine, opiate withdrawal, electrolyte abnormality, UTI, gastroenteritis, viral syndrome) ED course: On arrival patient is non-toxic and with a normal neurologic exam. Given she has a severe headache that was relatively fast in onset CT head was obtained that showed no acute intracranial abnormality. This was performed within 6 hours of the onset of her symptoms, making it very sensitive for head bleed. I discussed with pt, however, that it is not 100% sensitive, and that a missed head bleed could be catastrophic and lead to or disability. I discussed LP and patient refused, stating that she was starting to feel better. She clearly has capacity and understands the risks of missed pathology that could be caught on LP. She was given reglan and diphenhydramine for headache, and subsequently morphine for pain and potential withdrawal symptoms. Afterwards she felt much improved. She has a benign abdomen without tenderness and no signs of an acute abdomen. She denies dysuria but has nitrite positive urine suggesting UTI, I elected to treat with ceftriaxone. She is tolerating PO, has normal vital signs, and feels well and ready to go home. I discussed PCP follow up, cessation of drug use, and strict return precuations. Patient agreed and was discharged home with her son picking her up. After she had left I saw that she had not received the antibiotic script for her UTI. I called her using the number listed in her contacts and it was a wrong number. I called her listed next of kin and the number is disconnected. I did direct care counselor patient on the plan for treatment with antibiotics, if she contacts the hospital or if I am able to contact her I would call imtiaz to the pharmacy of her choice. Departure - Departure Disposition: 01 Home, Self Care Clinical Impression: Headache Qualifiers: Headache type: unspecified Headache chronicity pattern: acute headache Intractability: not intractable Qualified Code(s): R51 - Headache Vomiting Qualifiers: Vomiting type: unspecified Vomiting Intractability: non-intractable Nausea presence: with nausea Qualified Code(s): R11.2 - Nausea with vomiting, un specified Condition: Good Instructions: ED Cephalgia Unspecified Follow-Up: Roxanna Li ARNP [Primary Care Provider] - Within 3 Days Comments: You were seen today for headache, abdominal pain, and vomiting. You were found to have a urinary tract infection which may be contributing to your abdominal pain and vomiting. Your scan of your head did not show signs of bleeding, but as we discussed the test is not perfect. If you develop return of a severe headache, vision changes, weakness or numbness, or other concerning symptoms please return to the emergency department. Likewise if you develop worsening or changing abdominal pain, persistent vomiting, or other concerning symptoms pl ease return to the emergency department. Follow-up with your primary care provider soon as possible. Please abstain from using heroin and other illicit drugs. Discharge Date/Time: 09/10/19 06:56
[2019-09-10 01:44] LABS: BASOPHILS % (AUTO) 0.2 %; EOSINOPHILS % (AUTO) 0.3 %; HGB - HEMOGLOBIN 12.9 g/dL (12.0-16.0); LYMPHOCYTES # (AUTO) 0.8 10^3/uL (1.5-3.5); LYMPHOCYTES % (AUTO) 7.4 %; MEAN CORPUSCULAR HGB CONC 33.8 g/dL (32.0-36.0); MEAN CORPUSCULAR VOLUME 85.8 fL (81.0-99.0); MEAN PLATELET VOLUME 8.7 fL (7.9-10.8); MONOCYTES # (AUTO) 0.8 10^3/uL (0.0-1.0); MONOCYTES % (AUTO) 8.1 %; NEUTROPHILS # (AUTO) 8.5 10^3/uL (1.5-6.6); NEUTROPHILS % (AUTO) 83.4 %; PLT - PLATELET COUNT 272 10^3/uL (130-450); RED BLOOD COUNT 4.45 10^6/uL (4.20-5.40); RED CELL DISTRIBUTION WIDTH 11.9 % (12.0-15.0); WHITE BLOOD COUNT 10.2 x10^3/uL (4.8-10.8)
[2019-09-10 01:47] LABS: INR 1.1 (0.8-1.2); PT - PROTHROMBIN TIME 12.8 secs (9.9-12.6)
[2019-09-10 01:55] LABS: ALBUMIN 4.2 g/dL (3.2-5.5); ALBUMIN/GLOBULIN RATIO 1.3 (1.0-2.2); BILIRUBIN,TOTAL 0.7 mg/dL (0.2-1.0); CALCIUM 9.1 mg/dL (8.5-10.3); CREATININE 0.6 mg/dL (0.4-1.0); TOTAL PROTEIN 7.4 g/dL (6.7-8.2)
--- NOTE | 2019-09-10 02:32 | CT Report ---
Reason: sudden severe headache, vomiting Procedure Date: 09/10/2019 Accession Number: [id number] / [id number] Procedure: CT - HEAD WO CPT Code: FULL RESULT: EXAM: CT HEAD EXAM DATE: 09/10/2019 01:57 AM. CLINICAL HISTORY: Sudden severe headache, nausea and vomiting. COMPARISON: HEAD W/O 07/06/2017 4:20 PM. TECHNIQUE: Multiaxial CT images were obtained from the foramen magnum to the vertex. Reformats: Sagittal and coronal. IV contrast: None. In accordance with CT protocol optimization, one or more of the following dose reduction techniques were utilized for this exam: automated exposure control, adjustment of mA and/or KV based on patient size, or use of iterative reconstructive technique. FINDINGS: Parenchyma: No intraparenchymal hemorrhage. No evidence of mass, midline shift, or CT findings of infarction. Owens-white differentiation is distinct. Extraaxial Spaces: Normal for age. No subdural or epidural collections identified. Ventricles: Normal in size and position. Sinuses and Orbits: Suspect small old blowout fracture in the medial wall of the right orbit. Metal plate and screws in the medial wall of the left orbit. The visualized paranasal sinuses and mastoid air cells show no significant abnormalities. Bones: No depressed skull fracture seen. Other: None. IMPRESSION: 1. No acute intracranial abnormality. [facility]
[2019-09-10 03:16] LABS: BILIRUBIN,URINE NEGATIVE (NEGATIVE); GLUCOSE, URINE (UA) NEGATIVE (NEGATIVE); KETONES,URINE (UA) 15 mg/dL (NEGATIVE); LEUKOCYTE ESTERASE, URINE NEGATIVE (NEGATIVE); NITRITE,URINE POSITIVE (NEGATIVE); OCCULT BLOOD,URINE TRACE-INTA (NEGATIVE); PROTEIN,URINE NEGATIVE (NEGATIVE); UROBILINOGEN,URINE 0.2 (NORMAL) E.U./dL (NORMAL)
[2019-09-10 03:17] LABS: CLARITY,URINE CLOUDY (CLEAR)
[2019-09-10 03:23] LABS: AMORPHOUS SEDIMENT,UR Moderate /LPF; BACTERIA,URINE Many /HPF (None Seen); RBC,URINE 0-5 /HPF (0-5); SQUAMOUS EPITHELIAL CELL,UR RARE Squamous (<= Few)
[2019-09-10] MEDS ORDERED: cefTRIAXone 1 GM in SODIUM CHLORIDE 0.9% MINIBAG 100 ML IV STA (04:10)
[2019-09-10] MEDS ORDERED: ACETAMINOPHEN 500 MG TABLET PO STA (04:47)
[2019-09-10] MEDS ORDERED: MORPHINE 2 MG/ML CARPUJECT IVP STA (04:48)
[2019-09-10 05:09] VITALS: BP 108/71
== END 2019-09-10 06:56 | disposition home or self-care (01) ==
LOC: EDUNIT# → ED 01:15
DX: R51 Headache (principal); R10.9 Unspecified abdominal pain; R11.10 Vomiting, unspecified; N39.0 Urinary tract infection, site not specified
CPT/HCPCS: 36415; 70450; 80053; 81001; 83690; 84443; 85025; 85610; 87086; 87181; 96365; 96375; 99284; A9270; J1200; J2765; 81003

== ENCOUNTER 2022-04-10 18:27 | Emergency (ER) | payer OTHER, MEDICAID ==
[2022-04-10] MEDS ORDERED: IBUPROFEN 800 MG TABLET PO STA (18:56)
[2022-04-10] MEDS ORDERED: TETANUS/DIPHTHERIA/PERTUSSIS 0.5 ML SYRINGE IM ONE (18:56)
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
[2022-04-10 21:16] VITALS: BP 101/59
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
[2022-04-10] MEDS ORDERED: BACITRACIN ZINC OINT 1 PACKET TOP STA (21:26)
[2022-04-10] MEDS ORDERED: oxyCODONE 5 MG TABLET PO STA (21:27)
== END 2022-04-10 22:21 | disposition home or self-care (01) ==
LOC: ED 18:27
DX: S02.2XXA Fracture of nasal bones, initial encounter for closed fracture (principal); S82.002A Unspecified fracture of left patella, initial encounter for closed fracture; V03.90XA Pedestrian on foot injured in collision with car, pick-up truck or van, unspecified whether traffic or nontraffic accident, initial encounter; Z23 Encounter for immunization
CPT/HCPCS: 70450; 70486; 72125; 73564; 90471; 90715; 99284; A9270